=== PATIENT | male | born 2000 | race Hispanic/Latino ===

== ENCOUNTER 2022-03-05 12:45 | Outpatient (CLI) | payer OTHER | END 2022-03-05 12:46 | disposition home or self-care (01) | LOC: BURRAD 12:45 | PROVIDERS: ATTEND Nurse Practitioner Family | DX: Z11.1 Encounter for screening for respiratory tuberculosis (principal) | CPT/HCPCS: 71046 ==

== ENCOUNTER 2025-04-25 19:57 | Emergency (ER) | payer BC, SELFPAY ==
[2025-04-25] MEDS ORDERED: Mag-Al Plus 1200/1200/120 MG (30 mL) UDCUP ONE (20:22)
[2025-04-25] MEDS ORDERED: Lidocaine Viscous Sol 2% 15 ml UD Cup ONE (20:22)
[2025-04-25 21:04] LABS: Glucose, Urine (Dipstick) Negative (Negative); Leukocyte Negative (Negative); Protein, Urine (Dipstick) Trace mg/dL (Neg-Trace); Specific Gravity, Urine 1.025 (1.005-1.030)
[2025-04-25 21:06] LABS: #Basophils 0.1 thou/uL (0.0-0.2); #Eosinophils 0.0 thou/uL (0.0-0.7); #Lymphocytes 0.8 thou/uL (1.20-3.40); #Monocytes 0.6 thou/uL (0.11-0.59); #Neutrophils 9.0 thou/uL (1.40-6.50); %Basophils 0.7 % (0.0-1.0); %Eosinophils 0.1 % (0.0-10.0); %Lymphocytes 7.4 % (21.0-51.0); %Monocytes 5.8 % (0.0-10.0); %Neutrophils 86.0 % (42.0-75.0); Hematocrit 50.0 % (42.0-52.0); Hemoglobin 16.7 g/dL (14.0-18.0); Mean Corpuscular Hemoglobin 28.4 pg (27.0-31.0); Mean Corpuscular Volume 85.3 fl (78.0-98.0); Platelet Count 290 10x3/uL (130-400); Red Blood Cell (RBC) Count 5.86 mill/uL (4.70-6.10); White Blood Cell (WBC) Count 10.4 10x3/uL (4.8-10.8)
[2025-04-25 21:12] LABS: Bacteria/HPF Rare-Few HPF (None Seen); CAUTI Indications for Culture Pelvic or flank pain; RBC/HPF 0-3 HPF (0-3); WBC/HPF 0-3 HPF (0-3)
[2025-04-25 21:13] LABS: Urine Culture Reflex No No
[2025-04-25 21:26] LABS: ALT (SGPT) 28 U/L (Less than 45); AST (SGOT) 23 U/L (11-34); Albumin 4.6 g/dL (3.1-4.5); Alkaline Phosphatase 90 U/L (40-110); Anion Gap 17 mmol/L (10-20); BUN (Urea Nitrogen) 16 mg/dL (8.9-20.6); Bilirubin, Total 1.7 mg/dL (0.3-1.2); Calc. Creatinine Clearance 0 mL/min (70-130); Calcium 9.3 mg/dL (7.8-10.44); Carbon Dioxide 21 mmol/L (22-29); Chloride 102 mmol/L (98-107); Globulin 3.0 g/dL (2.4-3.5); Glucose 118 mg/dL (70-105); Lipase 9 U/L (8-78); Potassium 3.3 mmol/L (3.5-5.1); Sodium 137 mmol/L (136-145)
== END 2025-04-25 21:47 | disposition home or self-care (01) ==
LOC: BURERS 19:57
DX: K52.9 Noninfective gastroenteritis and colitis, unspecified (principal)
CPT/HCPCS: 80053; 81001; 83690; 85025; 96365; J2550